=== PATIENT | male | born 1965 | race Caucasian/White ===

== ENCOUNTER 2017-03-27 04:54 | Emergency (ER) | payer BC ==
[2017-03-27] MEDS ORDERED: GI Cocktail Oral Solution 30 ML PO ONE (05:33)
--- NOTE | 2017-03-27 05:34 | EDM.PDOC ---
ED HPI GENERAL MEDICAL PROBLEM - General Chief Complaint: Chest Pain Stated Complaint: CHEST PAIN Time Seen by Provider: 03/27/17 05:27 Source of Information: Reports: Patient History Limitations: Reports: No Limitations - History of Present Illness INITIAL COMMENTS - FREE TEXT/NARRATIVE: Patient comes in with complaints of chest pain. He does states that it is positional and feels like a vice around his chest. Started around 10 pm last evening. Reports pain is mid sternum with radiation to the back. No history of prior stroke or ID. No SOB. He does not have a fever, is not diaphoretic. States he has not been around any illness that he is aware of, no travel outside the country recently. He states no problems with urination or bowel movements. Denies blood to urine, stool, or any vomiting. No headache or any neurologic changes. Onset: Today, Sudden Duration: Intermittent, Waxing/Waning Location: Reports: Chest, Back Quality: Reports: Pressure Severity: Moderate Worsens with: Reports: Movement Associated Symptoms: Reports: Chest Pain Middle Chest Pain Score (Numeric/FACES): 3 - Related Data Allergies Allergy/AdvReac Type Severity Reaction Status Date / Time Penicillins Allergy Hives Verified 03/27/17 05:10 Home Meds: Home Meds Lisinopril/Hydrochlorothiazide [Lisinopril-Hctz 20-12.5 mg Tab] 2 tab PO DAILY 03/27/17 [History] Omeprazole Magnesium [Prilosec Otc] 20 mg PO DAILY 03/27/17 [History] Pravastatin Sodium [Pravastatin Sodium] 1 tab PO DAILY 03/27/17 [History] traZODone HCl [Trazodone HCl] 0.5 tab PO BEDTIME 03/27/17 [History] Past Medical History Cardiovascular History: Reports: High Cholesterol, Hypertension Gastrointestinal History: Reports: GERD Social & Family History - Tobacco Use Smoking Status *Q: Never Smoker ED ROS GENERAL - Review of Systems Review Of Systems: See Below Constitutional: Reports: No Symptoms HEENT: Reports: No Symptoms Respiratory: Reports: No Symptoms Cardiovascular: Reports: Chest Pain Endocrine: Reports: No Symptoms GI/Abdominal: Reports: No Symptoms : Reports: No Symptoms Musculoskeletal: Reports: No Symptoms Skin: Reports: No Symptoms Neurological: Reports: No Symptoms Psychiatric: Reports: No Symptoms Hematologic/Lymphatic: Reports: No Symptoms Immunologic: Reports: No Symptoms ED EXAM, GENERAL - Physical Exam Exam: See Below Exam Limited By: No Limitations General Appearance: Alert, WD/WN, No Apparent Distress Eye Exam: Bilateral Eye: EOMI, PERRL Ears: Normal TMs Nose: Normal Inspection Throat/Mouth: Normal Inspection, Normal Oropharynx Head: Atraumatic, Normocephalic Neck: Normal Inspection, Supple, Non-Tender, Full Range of Motion, Lymphadenopathy (L) Respiratory/Chest: No Respiratory Distress, Lungs Clear, Normal Breath Sounds, No Accessory Muscle Use, Chest Non-Tender Cardiovascular: Normal Peripheral Pulses, Regular Rate, Rhythm, No Edema, No Murmur Peripheral Pulses: 2+: Posterior Tibial (L), Posterior Tibial (R), Dorsalis Pedis (L), Dorsalis Pedis (R) GI/Abdominal: Normal Bowel Sounds, Soft, Non-Tender, No Abnormal Bruit Back Exam: Normal Inspection, Full Range of Motion Extremities: Normal Inspection, Normal Range of Motion, Non-Tender, No Pedal Edema, Normal Capillary Refill Neurological: Alert, Oriented, CN II-XII Intact, Normal Cognition, Normal Gait, Normal Reflexes, No Motor/Sensory Deficits Psychiatric: Normal Affect, Normal Mood Skin Exam: Warm, Dry, Intact, Normal Color, No Rash EKG INTERPRETATION EKG Date: 03/27/17 Time: 05:03 Rhythm: Other (sinus tach) Rate (Beats/Min): 104 [place]: Other (indeterminate) P-Wave: Present QRS: Normal ST-T: Normal QT: Normal Comparison: NA - No Prior EKG EKG Interpretation Comments: 1. sinus tach 2. indeterminate axis 3. abnormal rhythm Course - Vital Signs Last Recorded V/S: Last Vital Signs Temp 36.4 C 03/27/17 05:05 Pulse 98 03/27/17 05:05 Resp 18 03/27/17 05:05 BP 146/81 H 03/27/17 05:05 Pulse Ox 99 03/27/17 05:05 - Radiology Interpretation Free Text/Narrative:: Negative chest x-ray Departure - Departure Time of Disposition: 06:49 Disposition: Home, Self-Care 01 Condition: Good Clinical Impression: Costochondral chest pain Instructions: Nonspecific Chest Pain, [id number], Costochondritis, Easy-to- Read Referrals: PCP,Unobtain [Primary Care Provider] - Additional Instructions: Please follow up with your primary provider as needed Your labs, x-ray and ekg do not indicate any type of myocardial infarction(ID)/ heart attack May take ibuprofen this evening, tylenol at any time for the pain Please call us with any questions or concerns - Problem List & Annotations (1) Costochondral chest pain SNOMED Code(s): 446939446 Code(s): R07.1 - CHEST PAIN ON BREATHING Status: Acute Priority: Low Current Visit: Yes - Problem List Review Problem List Initiated/Reviewed/Updated: Yes - Assessment/Plan Assessment:: costochondritis Plan: Please follow up with your primary provider as needed Your labs, x-ray and ekg do not indicate any type of myocardial infarction(ID)/ heart attack May take ibuprofen this evening, tylenol at any time for the pain Please call us with any questions or concerns
[2017-03-27] MEDS ORDERED: Ketorolac 30 MG/ML SDV IM ONE (05:47)
[2017-03-27 06:23] VITALS: BP 132/62
[2017-03-27 06:31] LABS: CHLORIDE,CL 105 mmol/L (98-107); SODIUM,NA 141 mmol/L (136-145)
== END 2017-03-27 06:51 | disposition home or self-care (01) ==
LOC: VM.ED 04:54
DX: M94.0 Chondrocostal junction syndrome [Tietze] (principal); E78.00 Pure hypercholesterolemia, unspecified; I10 Essential (primary) hypertension; K21.9 Gastro-esophageal reflux disease without esophagitis; Z88.0 Allergy status to penicillin; Z79.899 Other long term (current) drug therapy
CPT/HCPCS: 36415; 71010; 80048; 82550; 83880; 84443; 84484; 85025; 85610; 93005; 96372; 99285; A9270; J1885